=== PATIENT | male | born 1990 | race Caucasian/White ===

== ENCOUNTER 2020-08-15 21:56 | Emergency (ER) | payer BC ==
--- NOTE | 2020-08-15 22:11 | EDM.PDOC ---
ED HPI GENERAL MEDICAL PROBLEM - General Chief Complaint: Lower Extremity Injury/Pain Stated Complaint: RIGHT LEG INJURY Time Seen by Provider: 08/15/20 22:06 Source of Information: Reports: Patient History Limitations: Reports: No Limitations - History of Present Illness INITIAL COMMENTS - FREE TEXT/NARRATIVE: 30-year-old male presents with right calf pain after stepping off a stone on . he felt a pop upon stepping off a stone. He started noticing pain and swelling to the right calf. Pain is worse with pushing off on the ball of his right foot. Pain is constant, moderate, nonradiating, alleviated with immobilization. ROS: A 10-point review of systems, other than pertinent positives and negatives as stated per HPI, is otherwise negative Past medical history: No additional pertinent history Past Surgical history: No additional pertinent history Social history: No additional pertinent history Family history: No additional pertinent history PHYSICAL EXAM General: AOx4, GCS = 15, No distress HEENT: dry mucous membrane Neck: supple, no meningismus, no Kernig or Brudzinski Cardiac: S1S2 RRR Respiratory: CTAB, no crackles or rales, no wheezing Abdomen: Soft, nontender, no rebound or guarding, nondistended, no pulsatile mass. Back: nontender Musculoskeletal: NVI distally, right calf tenderness and swelling. Normal foot plantar flexion and dorsiflexion. Neuro: No focal deficits, CN 2 - 12 WNL. RLE Pain Score (Numeric/FACES): 3 - Related Data Allergies Allergy/AdvReac Type Severity Reaction Status Date / Time No Known Allergies Allergy Verified 08/15/20 22:06 Home Meds: Home Meds Naproxen [EC-Naproxen] 500 mg PO BID #10 tablet. 08/16/20 [Rx] Review of Systems - Review of Systems Review Of Systems: See Below (see dictation) ED EXAM, GENERAL - Physical Exam Exam: See Below (see dictation) ED TRAUMA EXTREMITY PROCEDURES - Splinting Right Lower Extremity Splint Site: right LE Pre-Procedure NV Status: Normal Post-Procedure NV Status: Normal Splint Material: Boot Orthotic Applied & Form Fitted By: Nurse Provider Post-Splint Application NV Check: NV Status Normal, Good Position Complications: No Progress/Comments: Splint: Boot orthosis Indication: Right calf pain How will this benefit patient: immobilization Duration: 7 days Course - Vital Signs Last Recorded V/S: Last Vital Signs Temp 96.8 F L 08/15/20 22:07 Pulse 90 08/15/20 22:07 Resp 18 08/15/20 22:07 BP 153/78 H 08/15/20 22:07 Pulse Ox 97 08/15/20 22:07 - Re-Assessments/Exams Free Text/Narrative Re-Assessment/Exam: 08/16/20 0014 After splinting in the ER, the patient improved and is currently stable for discharge. I performed a repeat exam and did not appreciate new abnormal findings. Patient exhibits normal vital signs. I advised the patient to return to the ER for reevaluation if symptoms worsened, including fever, worsening pain, or any other worrisome symptoms. I instructed the patient to follow up with their PCP within 2-3 days. MEDICAL DECISION MAKING: I reviewed the patients past medical records, lab and radiographic findings. I discussed the case with the patient. My differential diagnosis included: Melton's cyst, DVT, Achilles rupture, muscle strain. Departure - Departure Time of Disposition: 00:14 Disposition: Home, Self-Care 01 Condition: Good Clinical Impression: Strain of right calf muscle, Hematoma - Discharge Information *PRESCRIPTION DRUG MONITORING PROGRAM REVIEWED*: Not Applicable *COPY OF PRESCRIPTION DRUG MONITORING REPORT IN PATIENT STEVEN: Not Applicable Prescriptions: Naproxen [EC-Naproxen] 500 mg PO BID #10 tablet. Instructions: Cast or Splint Care, Adult, [id number], Muscle Strain, [id number], Elastic Bandage and RICE Therapy, Crutch Use, Adult, [id number] Referrals: PCP,None [Primary Care Provider] - Forms: ED Department Discharge Additional Instructions: The need for follow-up, as well as the timing and circumstances, are variable depending upon the specifics of your emergency department visit. If you don't have a primary care physician on staff, we will provide you with a referral. We always advise you to contact your personal physician following an emergency department visit to inform them of the circumstance of the visit and for follow-up with them and/or the need for any referrals to a consulting specialist. The emergency department will also refer you to a specialist when appropriate. This referral assures that you have the opportunity for follow-up care with a specialist. All of these measure are taken in an effort to provide you with optimal care, which includes your follow-up. Under all circumstances we always encourage you to contact your private ysician who remains a resource for coordinating your care. When calling for follow-up care, please make the office aware that this follow-up is from your recent emergency room visit. If for any reason you are refused follow-up, please contact the [facility] Emergency Department at and asked to speak to the emergency department charge nurse. If you do not have a primary care doctor, please follow up with the clinics below within 3-5 days. [facility] - Primary Care [address] [place] [address] [id number] [address] [address] Sepsis Event Note (ED) - Focused Exam Vital Signs: Vital Signs Temp Pulse Resp BP Pulse Ox 08/15/20 22:07 96.8 F L 90 18 153/78 H 97
--- NOTE | 2020-08-15 23:48 | US ---
INDICATION: Right calf pain COMPARISON: None available. FINDINGS: Ultrasound of the venous drainage of the right lower extremity shows no evidence of deep venous thrombosis. There is normal antegrade flow from the posterior tibial and popliteal veins superiorly through the common femoral vein. There is normal augmentation and compressibility of these veins. The area of pain in the calf is seen to have a deep subcutaneous fluid collection measuring 10.0 x 1.4 x 9.2 centimeters. This could be a hematoma. It shows no sign of increased color Doppler flow to suggest an abscess. IMPRESSION: No evidence of deep venous thrombosis on ultrasound examination of the right lower extremity. Area of pain in the calf is seen to contain a deep subcutaneous fluid collection which may be a hematoma. Dictated by Minor Nunn MD @ Aug 15 2020 11:45PM Signed by Dr. Mnior Nunn @ Aug 15 2020 11:48PM
== END 2020-08-16 00:34 | disposition home or self-care (01) ==
LOC: MW.ED 21:56
DX: S86.911A Strain of unspecified muscle(s) and tendon(s) at lower leg level, right leg, initial encounter (principal); W22.8XXA Striking against or struck by other objects, initial encounter
CPT/HCPCS: 29515; 93971-26-RT; 93971-RT; 99282; 99283-25

== ENCOUNTER 2023-02-28 18:25 | Emergency (ER) | payer BC | END 2023-02-28 20:52 | disposition home or self-care (01) | LOC: MW.ED 18:25 | DX: S93.402A Sprain of unspecified ligament of left ankle, initial encounter (principal); J45.909 Unspecified asthma, uncomplicated; X50.1XXA Overexertion from prolonged static or awkward postures, initial encounter | CPT/HCPCS: 73610-26-LT; 73610-LT; 99283 ==